=== PATIENT | male | born 1975 | race Caucasian/White ===

== ENCOUNTER 2025-02-02 15:42 | Emergency (ER) | payer MEDICAID ==
[~2025-02-02] VITALS: Ht 172.7 cm; Wt 90.0 kg
[2025-02-02 15:45] VITALS: TEMP 36.6; O2SAT 99
[2025-02-02] MEDS: ACETAMINOPHEN 325MG TABLET PO ONE (17:13)
[2025-02-02] MEDS: KETOROLAC 15MG/ML VIAL IM ONE (17:13)
[2025-02-02] MEDS: LIDOCAINE 5% PATCH TOP SCH (17:13)
[2025-02-02] MEDS ORDERED: NAPR-679 MT (19:48)
[2025-02-02] MEDS ORDERED: LIDO-53 TP (19:48)
[2025-02-02] MEDS ORDERED: ACET-2708 MT (19:48)
[2025-02-02] MEDS ORDERED: CYCL10TA21 MT (19:48)
[2025-02-02 20:05] VITALS: BP 151/89; PULSE 87; RESP 16; O2SAT 99
== END 2025-02-02 20:04 | disposition home or self-care (01) ==
LOC: ER 15:42
DX: M54.18 Radiculopathy, sacral and sacrococcygeal region (principal); M54.50 Low back pain, unspecified; E11.9 Type 2 diabetes mellitus without complications; I10 Essential (primary) hypertension
CPT/HCPCS: 73562; 72131; 96372; 99285; J1885; Z7610; A4606